=== PATIENT | female | born 1955 | race Two or more races ===

== ENCOUNTER → 2023-07-12 08:01 | Outpatient (CLI) | payer OTHER ==
[2023-07-12 10:41] LABS: HEMATOCRIT 38.9 % (36.0-45.00); MEAN CELL VOLUME 88.6 fL (80.00-100.00); MEAN CORPUSCULAR HEMOGLOBIN 29.7 pg (27.00-32.0); MEAN CORPUSCULAR HGB CONC 33.5 g/dl (32.0-36.0); PLATELET COUNT 196 K/uL (150-450); RED BLOOD COUNT 4.39 M/uL (4.00-6.00); RED CELL DISTRIBUTION WIDTH 12.7 % (11.5-14.5)
[2023-07-12 10:54] LABS: PH,URINE 6.5 (5.0-8.0); URINE APPEARANCE Clear; URINE BILIRRUBIN Negative (NEGATIVE); URINE BLOOD Negative; URINE COLOR Yellow; URINE GLUCOSE Negative (NEGATIVE); URINE LEUKOCYTE Negative; URINE NITRATE Negative; URINE PROTEIN Negative (NEGATIVE); URINE UROBILINOGEN 0.2 E.U./dl
[2023-07-12 10:58] LABS: URINE BACTERIA 50.3 uL (0.0-1933); URINE EPITHELIAL CELLS 4.3 uL (0.0-38.8); URINE WBC 4.9 uL (0.0-23.2)
[2023-07-12 11:01] LABS: URINE RBC 0.7 uL (0.0-20.8)
[2023-07-12 11:04] LABS: BILIRUBIN TOTAL 0.69 mg/dL (0.3-1.2); CALCIUM 9.4 mg/dL (8.5-10.1); CREATININE SERUM 0.6 mg/dL (0.55-1.02); GFR 100.33; GLOBULINA 3.1 G/DL (2.4-3.5); POTASSIUM 4.02 mEq/L (3.5-5.1); TOTAL PROTEIN 7.1 gm/dL (6.4-8.2)
[2023-07-12 11:06] LABS: INR 1.36
[2023-07-12 11:07] LABS: PARTIAL THROMBOPLASTIN TIME 32.9 SECONDS (22.0-34.0)
[2023-07-12 11:35] LABS: COL EPI 107 SECONDS (82-175)
== END | disposition home or self-care (01) ==
LOC: RAD 08:01 → ADM 15:15 → CIR.AMB 07-14 14:30 → EDSTATUS 07-14 15:15 → CIR.AMB 07-14 15:15
PROVIDERS: ATTEND Surgery
DX: N60.81 Other benign mammary dysplasias of right breast (principal); D49.3 Neoplasm of unspecified behavior of breast

== ENCOUNTER → 2023-07-14 06:10 | Outpatient (CLI) | payer OTHER ==
[2023-07-14 06:52] LABS: INR 1.41; PARTIAL THROMBOPLASTIN TIME 31.6 SECONDS (22.0-34.0); PROTHROMBIN TIME 14.4 SECONDS (9.0-11.5)
== END | disposition home or self-care (01) ==
LOC: LAB 06:10
PROVIDERS: ATTEND Internal Medicine
DX: D61.9 Aplastic anemia, unspecified (principal)